=== PATIENT | female | born 1960 | race Caucasian/White ===

== ENCOUNTER → 2024-09-19 | Outpatient (CLI) | payer OTHER, SELFPAY ==
[2024-09-19 11:03] LABS: Collection Type, Urine Clean Catch
[2024-09-19 11:57] LABS: Basophils % (Auto) 1 % (0-2.5); Eosinophils # (Auto) 0.1 Thou/mm3 (0.0-0.5); Eosinophils % (Auto) 1 % (0-10); Hematocrit 41.1 % (36.0-46.0); Hemoglobin 13.1 g/dL (12.0-16.0); Immature Granulocytes % (Auto) 0 % (0-0); Immature Granulocytes Auto 0.01 Thou/mm3 (0.00-0.00); Lymphocytes # (Auto) 0.8 Thou/mm3 (1.0-4.8); Lymphocytes % (Auto) 15 % (10-50); Mean Corpuscular HGB Conc 31.9 g/dl (31.0-37.0); Mean Corpuscular Hemoglobin 27.9 pg (25.0-35.0); Mean Corpuscular Volume 87 fL (80-100); Monocytes # (Auto) 0.3 Thou/mm3 (0.0-0.8); Monocytes % (Auto) 6 % (0-12); Neutrophils # (Auto) 4.2 Thou/mm3 (1.8-7.7); Neutrophils % (Auto) 77 % (37-80); Nucleated Red Blood Cell % 0 /100 WBC (0); Platelet Count 284 Thou/mm3 (140-440); RDW Standard Deviation 43.9 fL (36.4-46.3); White Blood Count 5.4 Thou/mm3 (3.6-11.0)
[2024-09-19 12:07] LABS: Bacteria,Urine 4+; Bilirubin,Urine Negative (Negative); Blood,Urine Negative (Negative); Clarity,Urine Turbid (Clear/Hazy); Color,Urine Lt-Yellow (Lt Yel-Yel); Glucose, Urine Negative (Negative); Ketones,Urine Negative (Negative); Leukocyte Esterase,Urine Positive (Negative); Nitrite,Urine Positive (Negative); Protein,Urine Negative (Neg - Trace); RBC,Urine < 1 /hpf (0-3); Specific Gravity,Urine 1.014 (1.001-1.035); Squamous Epithelial Cell,Urine 4 /hpf (0-5); Transitional Epi Cells,Urine < 1 /hpf (0-5); Urobilinogen,Urine Negative mg/dL (0.0-1.0); WBC,Urine 20 /hpf (0-5)
[2024-09-19 12:09] LABS: Vitamin B12 382 pg/mL (211-911); Vitamin D 25 Hydroxy Total 24.3 ng/mL (7.3-40.2)
[2024-09-19 12:13] LABS: Alanine Aminotransferase 17 U/L (10-49); Albumin, Serum 4.2 gm/dL (3.4-4.8); Albumin/Globulin Ratio 1.8 (1.2-2.2); Alkaline Phosphatase 86 U/L (46-116); Anion Gap 9 (7-16); Aspartate Amino Transferase 20 U/L (0-34); BUN/Creatinine Ratio 13 Ratio (12-20); Bilirubin,Total 0.5 mg/dL (0.3-1.2); Blood Urea Nitrogen 13 mg/dL (9-23); Calcium 9.7 mg/dL (8.3-10.6); Calcium (Corrected) 9.7 mg/dL (8.5-10.1); Carbon Dioxide 29.3 mMol/L (20.0-31.0); Cardiac Risk Estimate 3.1 RATIO (3.7-5.6); Chloride 102 mMol/L (98-107); Cholesterol 255 mg/dL (132-200); Globulin 2.3 gm/dL (2.3-3.5); Glucose 87 mg/dL (74-106); HDL Cholesterol 81 mg/dL (40-60); LDL Cholesterol,Calculated 158 mg/dL (0-130); Osmolality,Calculated 278 (275-295); Potassium 3.9 mMol/L (3.4-5.1); Sodium 140 mMol/L (136-145); Thyroid Stimulating Hormone 4.85 uIU/mL (0.55-4.78); Total Protein 6.5 gm/dL (5.7-8.2); Triglycerides 78 mg/dL (30-150); Uric Acid 4.2 mg/dL (3.1-7.8); eGFR > 60 See Note
[2024-09-19 12:48] LABS: Glucose Estimated Average 105 mg/dL (80-131); Hemoglobin A1C 5.3 % Hgb (4.8-6.0)
== END | disposition home or self-care (01) ==
PROVIDERS: PCP Internal Medicine; Referring Provider Internal Medicine; Visit Provider Internal Medicine
DX: Z00.00 Encounter for general adult medical examination without abnormal findings (principal); I10 Essential (primary) hypertension
CPT/HCPCS: 36415; 80053; 80061; 81001; 82306; 82607; 83036; 84443; 84550; 85025

== ENCOUNTER → 2024-12-07 | Outpatient (CLI) | payer OTHER, SELFPAY ==
[2024-12-07 10:06] LABS: Alanine Aminotransferase 24 U/L (10-49); Albumin, Serum 4.4 gm/dL (3.4-4.8); Albumin/Globulin Ratio 2.1 (1.2-2.2); Alkaline Phosphatase 71 U/L (46-116); Anion Gap 8 (7-16); Aspartate Amino Transferase 29 U/L (0-34); BUN/Creatinine Ratio 15 Ratio (12-20); Bilirubin,Total 0.4 mg/dL (0.3-1.2); Blood Urea Nitrogen 16 mg/dL (9-23); Carbon Dioxide 28.3 mMol/L (20.0-31.0); Chloride 106 mMol/L (98-107); Cholesterol 174 mg/dL (132-200); Creatinine (Component) 1.1 mg/dL (0.6-1.3); Globulin 2.1 gm/dL (2.3-3.5); Glucose 88 mg/dL (74-106); HDL Cholesterol 88 mg/dL (40-60); LDL Cholesterol,Calculated 70 mg/dL (0-130); Osmolality,Calculated 283 (275-295); Potassium 3.6 mMol/L (3.4-5.1); Sodium 142 mMol/L (136-145); Total Protein 6.5 gm/dL (5.7-8.2); Triglycerides 78 mg/dL (30-150); eGFR 56 See Note
== END | disposition home or self-care (01) ==
PROVIDERS: PCP Internal Medicine; Referring Provider Internal Medicine; Visit Provider Internal Medicine
DX: E78.5 Hyperlipidemia, unspecified (principal); I10 Essential (primary) hypertension
CPT/HCPCS: 36415; 80053; 80061

== ENCOUNTER 2025-03-30 09:53 | Emergency (ER) | payer OTHER, SELFPAY ==
[2025-03-30 09:54] VITALS: BMI 34.3
[2025-03-30 10:04] VITALS: BP 167/91; PULSE 75; RESP 16; TEMP 36.4; O2SAT 94
--- NOTE | 2025-03-30 10:06 | XR_ITS ---
EXAMINATION: AP chest single view TECHNIQUE: Upright AP portable chest single view Date and time: March 30, 2025 1201 hours, comparison January 02, 2024 INDICATION: Coughing beginning 1 week ago FINDINGS: Normal heart size. Moderate hyperexpansion. Early pneumonia at the lung bases. Prominent osteopenia IMPRESSION: Bibasilar pneumonia
--- NOTE | 2025-03-30 10:06 | EKG_ITS ---
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: : 1960 Requested By: Michael Blanchard (VALIDATION INTERN) Order Number: [id number] Reading MD: Michael Blanchard (VALIDATION INTERN) Measurements Intervals [place] Rate: 70 P: 64 DE: 189 QRS: 70 QRSD: 96 T: 74 QT: 395 QTc: 429 Interpretive Statements SINUS RHYTHM LOW QRS VOLTAGE IN PRECORDIAL LEADS [QRS DEFLECTION < 1.0 mV IN CHEST LEADS] INCOMPLETE RIGHT BUNDLE BRANCH BLOCK [90+ ms QRS DURATION, TERMINAL R IN V1/V2, 40+ ms S IN I/aVL/V4/V5/V6] Compared to ECG 01/02/2024 10:37:38 Low QRS voltage now present Incomplete right bundle-branch block now present Myocardial infarct finding no longer present /store/S0/[id number]/ecg/[id number].pdf
[2025-03-30 10:38] VITALS: BP 131/86; PULSE 80; RESP 19; O2SAT 94
[2025-03-30 10:51] LABS: Basophils # (Auto) 0.1 Thou/mm3 (0.0-0.2); Basophils % (Auto) 1 % (0-2.5); Eosinophils # (Auto) 0.1 Thou/mm3 (0.0-0.5); Eosinophils % (Auto) 1 % (0-10); Hematocrit 41.2 % (36.0-46.0); Hemoglobin 13.3 g/dL (12.0-16.0); Immature Granulocytes Auto 0.03 Thou/mm3 (0.00-0.00); Lymphocytes # (Auto) 0.9 Thou/mm3 (1.0-4.8); Lymphocytes % (Auto) 11 % (10-50); Mean Corpuscular HGB Conc 32.3 g/dl (31.0-37.0); Mean Corpuscular Hemoglobin 28.8 pg (25.0-35.0); Mean Corpuscular Volume 89 fL (80-100); Monocytes # (Auto) 0.4 Thou/mm3 (0.0-0.8); Monocytes % (Auto) 4 % (0-12); Neutrophils # (Auto) 6.8 Thou/mm3 (1.8-7.7); Neutrophils % (Auto) 83 % (37-80); Nucleated Red Blood Cell # 0.00 Thou/mm3 (0.00-0.00); Nucleated Red Blood Cell % 0 /100 WBC (0); Platelet Count 268 Thou/mm3 (140-440); RDW Standard Deviation 44.9 fL (36.4-46.3); Red Blood Count 4.62 Miln/mm3 (4.00-5.20); White Blood Count 8.2 Thou/mm3 (3.6-11.0)
--- NOTE | 2025-03-30 11:03 | PD.EDADULT ---
ED General RME/HPI General Chief complaint: Shortness of Breath/Dyspnea Stated complaint: SOB, DIFF BREATHING WITH COUGH X1WK Time Seen by Provider: 03/30/25 10:06 Arrival date/time: 03/30/25 09:53 RME / HPI RME / HPI narrative: Vikki is 65 y/o female with PMHx of COPD (on 2L NC at home) and hypertension who comes in for an evaluation of shortness of breath at rest and chest pain, onset 1 week ago, worsening, rated 5 out of 10. Patient reports that she went to go see her primary care doctor recently, Dr. Butler who gave her a shot of Toradol, and a steroid pack as well, however her symptoms continue to persist. She said she has had similar symptoms to these before. She denies any recent sick contacts, or recent travel. She also says that she has not gotten her influenza vaccine this year. She said she has been hospitalized for COVID-pneumonia and influenza pneumonia in the past. She does endorse a wet cough at this time. She says she takes inhalers at home. She says that she uses oxygen at home, however sometimes takes it off when she is feeling good. She does not have a certified personal trainer. No other complaints at this time. Related Data Home Medications ?Medication ?Instructions ?Recorded ?Confirmed hydrochlorothiazide 25 mg tablet 25 mg PO QDAY 12/18/20 01/02/24 losartan 100 mg tablet 100 mg PO QDAY 12/18/20 01/02/24 estradiol 10 mcg vaginal tablet 10 mcg vaginal DIRECTED 07/22/21 01/02/24 (Vagifem) pentosan polysulfate sodium 100 mg 100 mg PO TID 06/20/23 01/02/24 capsule (Elmiron) phenylpropanolamine 1 ea PO QID PRN sinus headache 06/20/23 01/02/24 bitartrat-aspirin 20 mg-325 mg effervescent tablet alprazolam 1 mg tablet (Xanax) 0.5 mg PO QDAY PRN Anxiety 09/21/23 01/02/24 roflumilast 500 mcg tablet 500 mcg PO QDAY 01/02/24 01/02/24 Previous Rx's ?Medication ?Instructions ?Recorded albuterol sulfate 90 mcg/actuation 1 puff inhalation QID PRN 06/23/23 aerosol inhaler shortness of breath or wheezing #8.5 grams dexamethasone 6 mg tablet 6 mg PO QDAY #7 tabs 01/04/24 amoxicillin 875 mg-potassium 1 tab PO BID 1 week #14 tabs 03/30/25 clavulanate 125 mg tablet azithromycin 250 mg tablet 250 mg PO QDAY 4 days #4 tabs 03/30/25 prednisone 20 mg tablet 20 mg PO QDAY 3 days #3 tabs 03/30/25 Allergies Allergy/AdvReac Type Severity Reaction Status Date / Time No Known Allergies Allergy Verified 03/30/25 09:56 Review of Systems Review of Systems Narrative Review of Systems: 12 point ROS reviewed and is otherwise negative unless stated directly in the HPI ED Exam Narrative Physical exam: General: AAOx3, NAD, HEENT: Moist mucous membranes, conjunctiva clear, EOMI, PERRLA, skin tag by L SCM Cardiovascular: S1, S2, radial pulses +2 bilat, RRR Pulmonary: No wheezing, some airway entry in both lung thomas bilaterally, may be some crackles in right lower lung field GI: No tenderness to light or deep palpitation, no guarding, rigidity, rebound tenderness or distension Extremities: No presence of trace or pitting edema in lower extremities bilaterally, dorsalis pedis pulses +2 bilaterally Neuro: AAOx3, no focal motor or sensory deficits in the UE or LE bilat Psych: Good judgement, thought and behavior Course Quality Measures none Orders Category Date Time Status Bedside COVID-19 Antigen Test NOW Care 03/30/25 10:07 Active EKG (ED ONLY) *Do not use* NOW Care 03/30/25 10:06 Completed Incentive Spirometry Treatment NOW Care 03/30/25 10:59 Active Insert IV NOW Care 03/30/25 11:03 Completed SVN NEEDED Care 03/30/25 10:59 Active EKG (ED Only) Stat Exams 03/30/25 10:06 Draft XR chest 1V portable Stat Exams 03/30/25 10:06 Completed B-Type Natriuretic Peptide Stat Lab 03/30/25 10:36 Completed CBC Stat Lab 03/30/25 10:36 Completed Comprehensive Metabolic Panel Stat Lab 03/30/25 10:36 Completed Influenza A & B Rapid Panel Stat Lab 03/30/25 13:21 Completed Magnesium Stat Lab 03/30/25 10:36 Completed Partial Thromboplastin Time Stat Lab 03/30/25 10:36 Completed Prothrombin Time with INR Stat Lab 03/30/25 10:36 Completed Sputum Culture and Gram Stain Stat Lab 03/30/25 10:59 Ordered Troponin I Stat Lab 03/30/25 10:36 Completed Albuterol/Ipratr Rt Destini [Duoneb Rt Destini] Med 03/30/25 11:01 Discontinued 3 ml INH X1 ONE Albuterol/Ipratr Rt Destini [Duoneb Rt Dsetini] Med 03/30/25 15:00 Discontinued 3 ml INH X1 ONE Azithromycin Inj [Zithromax Inj] 500 mg Med 03/30/25 11:00 Discontinued Sodium Chloride 0.9% 250 ml [Ns] 250 ml IV X1 HYDROcodone*/APAP 5/325 [[place] 5/325] Med 03/30/25 15:05 Discontinued 1 tab PO X1 ONE MethylPREDNISolone. [SoluMEDROL Inj] Med 03/30/25 10:59 Discontinued 125 mg IVP X1 ONE Sodium Chloride Rt [place]ini 10% [NS Rt Destini 10%] Med 03/30/25 10:59 Discontinued 5 ml INH X1 ONE Sodium Chloride Rt [place] 10% [NS Rt [place] 10%] Med 03/30/25 10:59 Discontinued 5 ml INH X1 ONE Sodium Chloride Rt [place] 10% [NS Rt [place]ini 10%] Med 03/30/25 10:59 Discontinued 5 ml INH X1 ONE Sputum Induction PRN RT 03/30/25 11:00 Ordered Vital Signs Vital signs: Vital Signs Temperature 97.5 F 03/30/25 10:04 Pulse Rate 75 03/30/25 10:04 Respiratory Rate 16 03/30/25 10:04 Blood Pressure 167/91 H 03/30/25 10:04 Pulse Oximetry (%) 94 L 03/30/25 10:04 Oxygen Delivery Method Nasal Cannula 03/30/25 10:04 Oxygen Flow Rate 2 03/30/25 10:04 Discharge Plan Plan Patient Disposition: HOME (Self Care) Prescriptions/Referrals Prescriptions/Med Rec: New azithromycin 250 mg tablet 250 mg PO QDAY 4 Days Qty: 4 0RF Rx Instructions: start on day 2 of therapy prednisone 20 mg tablet 20 mg PO QDAY 3 Days Qty: 3 0RF Rx Instructions: Take one tablet by mouth every day amoxicillin-pot clavulanate 875-125 mg tablet 1 tab PO BID 7 Days Qty: 14 0RF Rx Instructions: Take one tablet by mouth twice a day No Action hydrochlorothiazide 25 mg tablet 25 mg PO QDAY losartan 100 mg tablet 100 mg PO QDAY alprazolam [Xanax] 1 mg tablet 0.5 mg PO QDAY PRN (Reason: Anxiety) estradiol [Vagifem] 10 mcg tablet 10 mcg vaginal DIRECTED Patient Comments: Twice a week Elmiron 100 mg Capsule 100 mg PO TID phenylpropanolamine bit-ASA 20-325 mg Tablet, Effervescent 1 ea PO QID PRN (Reason: sinus headache) albuterol sulfate 90 mcg/actuation HFA aerosol inhaler 1 puff inhalation QID PRN (Reason: shortness of breath or wheezing) Qty: 8.5 0RF roflumilast 500 mcg tablet 500 mcg PO QDAY Patient Comments: TAKE 1 TABLET BY MOUTH ONCE DAILY dexamethasone 6 mg tablet 6 mg PO QDAY Qty: 7 0RF Referrals: Tess Butler MD [Primary Care Provider, Nephrology] - In 1 week Problem List Clinical Impression: COPD exacerbation, Community acquired pneumonia Patient/Caregiver Discharge Instructions Additional Instructions: Discharge instructions Follow-up with your PCP within 1 week Take your medicines as prescribed, Augmentin, Prednisone, and Azithromycin Follow up with your PCP, Dr. Butler, within one week Return to ED if your symptoms worsen or return Print Language: German Stand Alone Forms: Marilee Award Info., Patient Portal Info Letter MDM Narrative MDM hospital course (for use when minimal MDM required): 1100: Basic labs ordered, pulmonary hygiene including IV steroid, azithromycin, DuoNeb x 1, ordered sputum culture as well. Will follow-up with chest x-ray. 1519: Labs reviewed, wnl, CXR shows bibasilar pneumonia, CURB-65 Score calculated at 1, low risk, pt did not use abx outpatient as we spoke with Dr. Butler. Will administer additional breathing tx. Pt is on home oxygen, and is not tachypneic at this time. Pt is medically discharged at this time with strict ER precautions. Medication Administration(s) Medication Administration History Discontinued Medications Hydrocodone Bitart/Acetaminophen (Hydrocodone/Apap 5/325 Tablet) 1 tab PO X1 ONE Stop: 03/30/25 15:06 Last Admin: 03/30/25 15:20 Dose: 1 tab Documented By: ANJANA Albuterol/Ipratropium (Albuterol/Ipratropium (Duoneb) Rt Destini 3 Ml Nebu) 3 ml INH X1 ONE Stop: 03/30/25 11:02 Last Admin: 03/30/25 11:12 Dose: 3 ml Documented By: VERONICA Albuterol/Ipratropium (Albuterol/Ipratropium (Duoneb) Rt [place] 3 Ml Nebu) 3 ml INH X1 ONE Stop: 03/30/25 15:01 Last Admin: 03/30/25 15:21 Dose: Not Given Documented By: ANJANA Non-Admin Reason: Patient Refused Azithromycin 500 mg/ Sodium (Chloride) 250 mls @ 250 mls/hr IV X1 ONE Stop: 03/30/25 11:59 Last Infusion: 03/30/25 13:12 Dose: Infused Documented By: Admin: 03/30/25 11:27 Dose: 250 mls/hr Documented By: NAIMA Methylprednisolone Sodium Succinate (Methylprednisolone Sod Succ 40 Mg/Ml Vial) 125 mg IVP X1 ONE Stop: 03/30/25 11:00 Last Admin: 03/30/25 11:15 Dose: 125 mg Documented By: NAIMA Sodium Chloride (Sodium Chloride Rt 10% 15 Ml Nebu) 5 ml INH X1 ONE Stop: 03/30/25 11:00 Sodium Chloride (Sodium Chloride Rt 10% 15 Ml Nebu) 5 ml INH X1 ONE Stop: 03/30/25 11:00 Last Admin: 03/30/25 11:56 Dose: Not Given Documented By: WILMA Non-Admin Reason: Duplicate Medication on eMAR Sodium Chloride (Sodium Chloride Rt 10% 15 Ml Nebu) 5 ml INH X1 ONE Stop: 03/30/25 11:00 Last Admin: 03/30/25 11:56 Dose: Not Given Documented By: WILMA Non-Admin Reason: Duplicate Medication on eMAR Diagnosis Diagnoses ruled out and/or further discussions: COPD exacerbation, pneumonia, Costochondritis, PE
[2025-03-30 11:06] LABS: INR 1.0 (0.9-1.3); Partial Thromboplastin Time 25.6 Seconds (22.0-36.0); Prothrombin Time 10.5 Seconds (9.0-12.2)
[2025-03-30 11:10] LABS: Alanine Aminotransferase 17 U/L (10-49); Albumin, Serum 4.8 gm/dL (3.4-4.8); Albumin/Globulin Ratio 2.0 (1.2-2.2); Alkaline Phosphatase 82 U/L (46-116); Anion Gap 11 (7-16); Aspartate Amino Transferase 20 U/L (0-34); BUN/Creatinine Ratio 10 Ratio (12-20); Bilirubin,Total 0.5 mg/dL (0.3-1.2); Blood Urea Nitrogen 12 mg/dL (9-23); Calcium 9.9 mg/dL (8.3-10.6); Calcium (Corrected) 9.9 mg/dL (8.5-10.1); Carbon Dioxide 27.1 mMol/L (20.0-31.0); Chloride 102 mMol/L (98-107); Creatinine (Component) 1.2 mg/dL (0.6-1.3); Estimated Creatinine Clearance 50.3 mL/min (>60); Globulin 2.4 gm/dL (2.3-3.5); Glucose 112 mg/dL (74-106); Magnesium 1.8 mg/dL (1.6-2.6); Osmolality,Calculated 280 (275-295); Potassium 3.9 mMol/L (3.4-5.1); Sodium 140 mMol/L (136-145); Total Protein 7.2 gm/dL (5.7-8.2); Troponin I < 0.020 ng/mL (0.0-0.045); eGFR 50 See Note
[2025-03-30] MEDS: ALBUTEROL/IPRATROPIUM (Duoneb) RT SOL 3 ML NEBU INH (11:12)
[2025-03-30 11:13] LABS: B-Type Natriuretic Peptide 20 pg/mL (0-100)
[2025-03-30 11:16] VITALS: PULSE 68; RESP 19; O2SAT 100
[2025-03-30] MEDS: AZITHROMYCIN INJ 500 MG in SODIUM CHLORIDE 0.9% 250 ML 250 ML 250 MG IV (11:27)
[2025-03-30 12:22] VITALS: BP 150/80; PULSE 66; RESP 16; TEMP 36.7; O2SAT 98
[2025-03-30 13:44] LABS: Influenza A Ag Negative; Influenza B Ag Negative
[2025-03-30 14:14] VITALS: BP 143/78; PULSE 63; RESP 18; TEMP 36.6; O2SAT 95
[2025-03-30] MEDS: HYDROcodone/APAP 5/325 TABLET 1 TAB PO (15:20)
[2025-03-30 15:22] VITALS: BP 128/86; PULSE 64; RESP 15; O2SAT 95
[2025-03-30] MEDS: AMOXICILLIN/POT CLAV 875 TABLET 1 TAB PO (15:33)
== END 2025-03-30 15:55 | disposition home or self-care (01) ==
PROVIDERS: Nurse Practitioner Primary Care; Emergency Provider Family Medicine; PCP Internal Medicine
DX: J44.1 Chronic obstructive pulmonary disease with (acute) exacerbation (principal); J44.0 Chronic obstructive pulmonary disease with (acute) lower respiratory infection; J18.9 Pneumonia, unspecified organism; I45.10 Unspecified right bundle-branch block; I10 Essential (primary) hypertension; Z99.81 Dependence on supplemental oxygen
CPT/HCPCS: 36415; 71045; 80053; 83735; 83880; 84484; 85025; 85610; 85730; 87205; 87502; 87811; 93005; 94640; 96365; 96366; 96375; 99284; A9270; J0456; J2919; J7050

== ENCOUNTER → 2025-04-26 | Outpatient (CLI) | payer OTHER, SELFPAY ==
[2025-04-26 12:32] LABS: Base Excess 3 (-3-3); HCO3 27 mEq/L (20-26); Inspired O2, VO2 Liters 1 L/min; O2 Saturation 93 % (91-98); PCO2 40 mmHg (32.0-48.0); PO2 66 mmHg (83-108); pH, Arterial 7.44 (7.35-7.45)
[2025-04-26 12:33] LABS: Allen Test Performed/OK; Puncture Site Right Brachial
[2025-04-26 12:51] LABS: Collection Type, Urine Clean Catch
[2025-04-26 14:07] LABS: Bilirubin,Urine Negative (Negative); Blood,Urine Negative (Negative); Clarity,Urine Clear (Clear/Hazy); Color,Urine Lt-Yellow (Lt Yel-Yel); Glucose, Urine Negative (Negative); Ketones,Urine Negative (Negative); Leukocyte Esterase,Urine Positive (Negative); Nitrite,Urine Positive (Negative); PH,Urine 7.0 (5.0-7.0); Protein,Urine Negative (Neg - Trace); RBC,Urine 2 /hpf (0-3); Specific Gravity,Urine 1.010 (1.001-1.035); Squamous Epithelial Cell,Urine < 1 /hpf (0-5); Urobilinogen,Urine Negative mg/dL (0.0-1.0); WBC,Urine 10 /hpf (0-5)
[2025-04-26 14:27] LABS: Culture Indicated,Urine Yes
== END | disposition home or self-care (01) ==
PROVIDERS: PCP Internal Medicine; Referring Provider Internal Medicine; Visit Provider Internal Medicine
DX: N39.0 Urinary tract infection, site not specified (principal); J96.12 Chronic respiratory failure with hypercapnia
CPT/HCPCS: 36600; 81001; 82803; 87086